=== PATIENT | female | born 1960 | race African-American/Black ===

== ENCOUNTER 2020-08-16 10:36 | Emergency (ER) | payer MEDICAID ==
[~2020-08-16] VITALS: Ht 172.7 cm; Wt 75.0 kg
[2020-08-16] MEDS ORDERED: SODIUM CHLORIDE 0.9% 1,000 ML IV ONE (11:00)
[2020-08-16 12:11] LABS: EOSINOPHILS % 3.4 % (0.0-5.0); HEMATOCRIT. 39.4 % (36.0-48.0); HEMOGLOBIN. 13.3 g/dL (12.0-16.0); LYMPHOCYTES % 18.3 % (20.0-50.0); MEAN CORPUSCULAR HEMOGLOBIN 30.3 pg (28.0-32.0); MEAN CORPUSCULAR VOLUME 89.6 fL (81.0-99.0); MEAN PLATELET VOLUME 7.9 fl (7.4-10.4); MONOCYTES % 5.9 % (2.0-8.0); NEUTROPHILS % 71.4 % (40.0-76.0); PLATELET 311 x1000/uL (130-400); RED CELL DISTRIBUTION WIDTH 13.5 % (11.6-14.6)
[2020-08-16 12:19] LABS: CHLORIDE 105 mEq/L (98-107)
[2020-08-16 14:59] VITALS: BP 148/95
== END 2020-08-16 15:41 | disposition left against medical advice (07) ==
LOC: ER 10:43 → CANBEDREQ 17:36
DX: R07.89 Other chest pain (principal); R06.02 Shortness of breath; R42 Dizziness and giddiness; I10 Essential (primary) hypertension; Z88.6 Allergy status to analgesic agent
CPT/HCPCS: 36415; 71045; 80053; 83880; 84484; 85025; 93005; 96360; 99285; J7030